=== PATIENT | female | born 1955 | race Caucasian/White ===

== ENCOUNTER 2017-02-03 08:02 | Day surgery (SDC) | payer BC ==
--- NOTE | 2017-01-07 19:19 | HP ---
PREOPERATIVE HISTORY AND PHYSICAL: DATE OF ADMISSION: 01/13/17 PROVIDER: Carlos Lundy MD (DICTATED BY ALFREDO AUGUSTIN) CHIEF COMPLAINT: Left ankle pain. HISTORY OF PRESENT ILLNESS: Phyllis is a 61-year-old female who has been followed by Dr. Lundy for a left ankle bimalleolar fracture. She underwent the initial ankle surgery in [facility] where she was at the time of the injury and has followed up here in [place] as she lives here. She states that she has been doing very well with her normal recovery; however, she still has some stiffness and weakness secondary to the syndesmotic screws in her ankle. She is interested in having the hardware removed at this time. PAST MEDICAL HISTORY: Melanoma. PAST SURGICAL HISTORY: Melanoma excision, lipoma excision, ovarian cystectomy, left ankle external fixator placement, and left ankle ORIF. She reports no complications with anesthesia with any procedure, although she does remember feeling quite forgetful after general anesthesia for several days postoperatively. CURRENT MEDICATIONS: 1. Folic acid 800 mcg 1 p.o. daily. 2. Black cohosh 2 tabs p.o. q.a.m. 3. Vitamin D3 5000 units 1 p.o. daily. 4. Floradix iron supplements 1 p.o. daily. 5. Vitamin K 1 cap p.o. daily. 6. DHEA 10 mg 3 tabs p.o. daily. 7. Evening primrose oil 1 cap p.o. daily. 8. Vitamin A 25,000 units 1 p.o. daily. 9. Calcium plus magnesium 1000/500 mg daily. 10. Arnica supplement and CoQ10. ALLERGIES: NOVOCAINE, CODEINE, LATEX, and ADHESIVE. FAMILY HISTORY: Noncontributory. SOCIAL HISTORY: The patient denies any tobacco use. She drinks occasionally. She is self-employed as a caterer. She lives alone. REVIEW OF SYSTEMS: Constitutional: Negative for recent hospitalizations, fevers, chills, or night sweats. Negative for eyes. Negative for blurred or double vision. ENT: Negative for sore throat, runny nose, frequent nosebleeds , or hearing changes. Cardiovascular: Negative for chest pain or heart palpitations. Respiratory: Negative for shortness of breath or cough. Gastrointestinal: Negative for nausea, vomiting, diarrhea, or constipation. Genitourinary: Negative for urinary tract infections or kidney stones. Musculoskeletal: Positive for previous fracture. Negative for chronic back or neck pain. Neurologic: Positive for dizziness and lightheadedness secondary to concussion. Negative for peripheral neuropathy or weakness. Skin: Negative for rashes or skin lesions. Endocrine: Negative for weight loss, weight gain, or fatigue. Hematology: Negative for easy bleeding or bruising. Allergies: Negative for seasonal allergies or hay fever. Psychiatric: Negative for depression or anxiety. PHYSICAL EXAMINATION GENERAL: She is a well-developed, well-nourished, pleasant female, in no acute distress at rest. She is alert and oriented x3, with appropriate mood and affect. VITAL SIGNS: The patient is 5 feet 7 inches, 168 pounds. Blood pressure 130/72 , pulse of 64, temperature 98.1, respirations 16. HEENT: Normocephalic, atraumatic. Hearing and vision are grossly intact. NECK: Trachea is midline. RESPIRATORY: Lungs are clear to auscultation bilaterally. No wheezes, rales, or rhonchi. CARDIOVASCULAR: Regular rate and rhythm. No murmurs, rubs, or gallops. Normal S1 and S2. ABDOMEN: Soft, nondistended, nontender. Normal bowel sounds. EXTREMITIES: Exam of the left lower extremity, incisions are well healed. She has dorsiflexion to 10 degrees, plantar flexion to 15 degrees. She has inversion and eversion to about 10 degrees. She has some mild tenderness to palpation along the posterior tibial tendon. No erythema or swelling throughout the ankle. Sensation to light touch is intact in all nerve distributions. She has 2+ dorsalis pedis pulse. IMPRESSION: Painful hardware of the left ankle. PLAN: The patient is to undergo left ankle removal of screw by Dr. Lundy on . The risks, benefits, and postoperative course were discussed with the patient at length and she would like to proceed. All of her questions were answered to her full satisfaction. She understands to call should she develop any problems or concerns. ALFREDO AUGUSTIN [id number]/[facility] #: [id number] PA[place]
[~2017-02-03 08:02] MED LIST: Buffered Lidocaine 0.9% SYRIN* 5 ML/SYR SYRINGE INTRADERM ONE; Buffered Lidocaine 0.9% SYRIN* 5 ML/SYR SYRINGE ONE; Famotidine IV* 10 MG/ML 2 ML (20 mg) IV ONE; Famotidine IV* 10 MG/ML 2 ML (20 mg) ONE; Midazolam* 1 MG/ML 5 ML VIAL (5 MG) ONE; ceFAZolin 2 GM PREMIX(*) 0 GM/0 ML BAG IVPB ONE; fentaNYL* 50 MCG/ML 2 ML VIAL (100 MCG VIAL) ONE
[2017-02-03] MEDS ORDERED: Famotidine IV* 10 MG/ML 2 ML (20 mg) ONE (08:07)
[2017-02-03] MEDS ORDERED: Buffered Lidocaine 0.9% SYRIN* 5 ML/SYR SYRINGE ONE (08:08)
[2017-02-03] MEDS ORDERED: ceFAZolin 2 GM PREMIX(*) 2 GM/50 ML BAG IVPB ONE (08:08)
[2017-02-03] MEDS ORDERED: Bupivacaine 0.5% SDV PF* 30 ML VIAL ONE (08:59)
[2017-02-03] MEDS ORDERED: DiMENhydriNATE IV* 50 MG/ML VIAL IV PUSH PRN (08:59)
[2017-02-03] MEDS ORDERED: oxyCODONE TAB* 5 MG TAB PO PRN (08:59)
[2017-02-03] MEDS ORDERED: Acetaminophen TAB* 325 MG PO PRN (08:59)
[2017-02-03] MEDS ORDERED: Lidocaine 2% PF * 5 ML VIAL ONE ×3 (09:21→10:53)
[2017-02-03] MEDS ORDERED: Ondansetron INJ* 2 MG/ML VIAL ONE (10:18)
[2017-02-03] MEDS ORDERED: Propofol* 10 MG/ML 20 ML BTL IV PUSH ONE ×2 (10:18→10:42)
[2017-02-03] MEDS ORDERED: Ketorolac INJ* 30 MG/ML 1 ML VIAL ONE (10:18)
[2017-02-03 12:02] VITALS: BP 121/67
--- NOTE | 2017-02-04 00:42 | OP ---
OPERATIVE REPORT: DATE OF OPERATION: 02/03/17 DATE OF : 57 SURGEON: Carlos Lundy MD. CHOIR DIRECTOR: Guerline Alcantara PA-C. PRE-OP DIAGNOSIS: Painful left ankle bimalleolar hardware. POST-OP DIAGNOSIS: Painful left ankle bimalleolar hardware. OPERATIVE PROCEDURE: Removal of hardware, left ankle. DESCRIPTION OF PROCEDURE: The patient had a longitudinal incision over her left fibula with an ankl e Esmarch placed at the midcalf. We removed the Recon plate along the lateral fibula with the small locking screwdriver. Medially, we made a longitudinal incision through the curvilinear malleolar i ncision and isolated the 2 separate 4.0 mm cannulated screws. These were removed with appropriate s crewdriver. The lateral wound was closed with Vicryl subcutaneous and willy for the skin. Medial wound closed with subcutaneous 2-0 Vicryl and willy as well. A compression dressing was applied. [id number]/[facility] #: [id number]
== END 2017-02-03 12:20 | disposition home or self-care (01) ==
LOC: OR 08:02
PROVIDERS: ATTEND Orthopaedic Surgery
DX: T84.84XA Pain due to internal orthopedic prosthetic devices, implants and grafts, initial encounter (principal); Y83.1 Surgical operation with implant of artificial internal device as the cause of abnormal reaction of the patient, or of later complication, without mention of misadventure at the time of the procedure
CPT/HCPCS: 88300; J0690; J1885; J2250; J2405; J2704; J3010